=== PATIENT | male | born 1980 | race Caucasian/White ===

== ENCOUNTER 2020-09-06 12:49 | Inpatient (IN) | payer OTHER, SELFPAY ==
[~2020-09-06] VITALS: Ht 162.6 cm; Wt 113.0 kg
[2020-09-06 12:51] VITALS: Ht 162.6 cm; Wt 113.0 kg
[2020-09-06 15:25] LABS: BASOPHIL % 0.4 % (0.2-1.5); PLATELET COUNT 267 x10^3mcL (152-348); RED CELL DISTRIBUTION WIDTH 13.6 % (12.1-16.2)
[2020-09-06 16:35] LABS: CALCIUM 8.8 mg/dL (8.5-10.1); CARBON DIOXIDE 26.5 mmol/L (21-32); CHLORIDE SERUM 96 mmol/L (98-107); CREATININE SERUM 1.1 mg/dL (0.7-1.3); GFR1 > 60 mL/min; GLUCOSE SERUM 150 mg/dL (74-106); POTASSIUM SERUM 3.3 mmol/L (3.5-5.1); SODIUM SERUM 132 mmol/L (136-145)
[2020-09-06 16:46] LABS: ALKALINE PHOSPHATASE 52 U/L (46-116); ALT/SGPT 97 U/L (16-63); AST/SGOT 64 U/L (15-37); BILIRUBIN TOTAL 0.97 mg/dL (0.20-1.00); TOTAL PROTEIN, SERUM 7.7 g/dL (6.4-8.2)
[2020-09-06 16:47] LABS: ALBUMIN 2.9 g/dL (3.4-5.0); LACTIC DEHYDROGENASE (LDH) 613 U/L (100-190)
[2020-09-06 16:48] LABS: C REACTIVE PROTEIN 13.1 mg/dL (<=0.9)
[2020-09-06 17:30] LABS: UA SPECIFIC GRAVITY >=1.030 (1.005-1.035); microscopic required? YES; urine erythrocyte 3+ (NEGATIVE)
[2020-09-06 18:13] VITALS: BP 143/99
[2020-09-07 03:20] VITALS: BP 138/93
[2020-09-07 05:49] VITALS: BP 120/825
[2020-09-07 07:30] VITALS: BP 118/76
[2020-09-07 07:33] LABS: BASOPHIL % 0.2 % (0.2-1.5); PLATELET COUNT 295 x10^3mcL (152-348); RED CELL DISTRIBUTION WIDTH 13.4 % (12.1-16.2)
[2020-09-07 07:44] LABS: ALKALINE PHOSPHATASE 50 U/L (46-116); ALT/SGPT 91 U/L (16-63); AST/SGOT 51 U/L (15-37); BILIRUBIN TOTAL 0.69 mg/dL (0.20-1.00); CALCIUM 9.2 mg/dL (8.5-10.1); CARBON DIOXIDE 31.6 mmol/L (21-32); CHLORIDE SERUM 98 mmol/L (98-107); GFR1 > 60 mL/min; GLUCOSE SERUM 169 mg/dL (74-106); POTASSIUM SERUM 4.1 mmol/L (3.5-5.1); SODIUM SERUM 139 mmol/L (136-145); TOTAL PROTEIN, SERUM 7.3 g/dL (6.4-8.2)
[2020-09-07 07:46] LABS: ALBUMIN 2.6 g/dL (3.4-5.0)
[2020-09-07 12:46] VITALS: BP 136/87
[2020-09-07 18:05] VITALS: BP 119/71
[2020-09-07 21:48] VITALS: BP 131/71
[2020-09-08 05:48] VITALS: BP 121/76
[2020-09-08 07:32] LABS: BASOPHIL % 0.5 % (0.2-1.5); PLATELET COUNT 322 x10^3mcL (152-348); RED CELL DISTRIBUTION WIDTH 13.5 % (12.1-16.2)
[2020-09-08 08:01] LABS: ALKALINE PHOSPHATASE 48 U/L (46-116); ALT/SGPT 67 U/L (16-63); AST/SGOT 46 U/L (15-37); BILIRUBIN TOTAL 0.59 mg/dL (0.20-1.00); CALCIUM 8.5 mg/dL (8.5-10.1); CARBON DIOXIDE 30.9 mmol/L (21-32); CHLORIDE SERUM 99 mmol/L (98-107); CREATININE SERUM 0.9 mg/dL (0.7-1.3); GFR1 > 60 mL/min; GLUCOSE SERUM 119 mg/dL (74-106); POTASSIUM SERUM 3.3 mmol/L (3.5-5.1); SODIUM SERUM 137 mmol/L (136-145); TOTAL PROTEIN, SERUM 6.5 g/dL (6.4-8.2)
[2020-09-08 08:02] LABS: ALBUMIN 2.3 g/dL (3.4-5.0)
[2020-09-08 08:14] LABS: BILIRUBIN DIRECT 0.15 mg/dL (0.0-0.2); BILIRUBIN TOTAL 0.6 mg/dL (0.20-1.00); TOTAL PROTEIN, SERUM 6.5 g/dL (6.4-8.2)
[2020-09-08 08:17] LABS: ALBUMIN 2.4 g/dL (3.4-5.0)
[2020-09-08 09:08] VITALS: BP 116/71
[2020-09-08 12:17] VITALS: BP 131/88
[2020-09-08 16:35] VITALS: BP 145/82
[2020-09-08 21:26] VITALS: BP 122/80
[2020-09-09 05:38] VITALS: BP 127/74
[2020-09-09 07:43] LABS: BASOPHIL % 0.4 % (0.2-1.5); PLATELET COUNT 349 x10^3mcL (152-348); RED CELL DISTRIBUTION WIDTH 13.4 % (12.1-16.2)
[2020-09-09 08:08] LABS: ALKALINE PHOSPHATASE 46 U/L (46-116); ALT/SGPT 64 U/L (16-63); AST/SGOT 37 U/L (15-37); BILIRUBIN TOTAL 0.54 mg/dL (0.20-1.00); CALCIUM 8.7 mg/dL (8.5-10.1); CARBON DIOXIDE 30.7 mmol/L (21-32); CHLORIDE SERUM 101 mmol/L (98-107); CREATININE SERUM 0.8 mg/dL (0.7-1.3); GFR1 > 60 mL/min; GLUCOSE SERUM 126 mg/dL (74-106); POTASSIUM SERUM 3.5 mmol/L (3.5-5.1); SODIUM SERUM 139 mmol/L (136-145); TOTAL PROTEIN, SERUM 6.5 g/dL (6.4-8.2)
[2020-09-09 08:10] LABS: ALBUMIN 2.3 g/dL (3.4-5.0)
[2020-09-09 08:39] LABS: ALBUMIN 2.3 g/dL (3.4-5.0); BILIRUBIN DIRECT 0.15 mg/dL (0.0-0.2); BILIRUBIN TOTAL 0.53 mg/dL (0.20-1.00); TOTAL PROTEIN, SERUM 6.5 g/dL (6.4-8.2)
[2020-09-09 09:54] VITALS: BP 127/69
[2020-09-09 12:55] VITALS: BP 135/95
[2020-09-09 17:03] VITALS: BP 134/89
[2020-09-10 06:38] VITALS: BP 137/83
[2020-09-10 09:33] VITALS: BP 120/72
[2020-09-10 13:40] VITALS: BP 120/77
[2020-09-10 14:02] LABS: BASOPHIL % 0.8 % (0.2-1.5); RED CELL DISTRIBUTION WIDTH 13.6 % (12.1-16.2)
[2020-09-10 14:25] LABS: PLATELET COUNT 452 x10^3mcL (152-348)
[2020-09-10 14:59] LABS: ALKALINE PHOSPHATASE 57 U/L (46-116); ALT/SGPT 111 U/L (16-63); AST/SGOT 69 U/L (15-37); BILIRUBIN TOTAL 0.55 mg/dL (0.20-1.00); CALCIUM 9.1 mg/dL (8.5-10.1); CARBON DIOXIDE 31.8 mmol/L (21-32); CHLORIDE SERUM 102 mmol/L (98-107); CREATININE SERUM 0.9 mg/dL (0.7-1.3); GFR1 > 60 mL/min; GLUCOSE SERUM 123 mg/dL (74-106); POTASSIUM SERUM 3.7 mmol/L (3.5-5.1); SODIUM SERUM 140 mmol/L (136-145); TOTAL PROTEIN, SERUM 7.1 g/dL (6.4-8.2)
[2020-09-10 15:01] LABS: ALBUMIN 2.6 g/dL (3.4-5.0)
[2020-09-10 17:28] VITALS: BP 122/85
[2020-09-10 21:00] VITALS: BP 112/70
[2020-09-11 05:30] VITALS: BP 113/79
[2020-09-11] MEDS ORDERED: DECADRON6 MG PO ×2 (10:37→17:59)
[2020-09-11 14:01] LABS: RED CELL DISTRIBUTION WIDTH 13.6 % (12.1-16.2)
[2020-09-11 14:20] LABS: ALKALINE PHOSPHATASE 60 U/L (46-116); ALT/SGPT 174 U/L (16-63); AST/SGOT 105 U/L (15-37); BILIRUBIN TOTAL 0.63 mg/dL (0.20-1.00); CALCIUM 8.8 mg/dL (8.5-10.1); CARBON DIOXIDE 30.1 mmol/L (21-32); CHLORIDE SERUM 102 mmol/L (98-107); GFR1 > 60 mL/min; GLUCOSE SERUM 187 mg/dL (74-106); POTASSIUM SERUM 3.5 mmol/L (3.5-5.1); SODIUM SERUM 139 mmol/L (136-145); TOTAL PROTEIN, SERUM 6.9 g/dL (6.4-8.2)
[2020-09-11 14:21] LABS: ALBUMIN 2.7 g/dL (3.4-5.0)
[2020-09-11 15:00] LABS: PLATELET COUNT 477 x10^3mcL (152-348)
[2020-09-11 15:10] LABS: BILIRUBIN DIRECT 0.17 mg/dL (0.0-0.2); BILIRUBIN TOTAL 0.59 mg/dL (0.20-1.00); TOTAL PROTEIN, SERUM 6.9 g/dL (6.4-8.2)
[2020-09-11 15:11] LABS: ALBUMIN 2.7 g/dL (3.4-5.0)
[2020-09-11 15:35] VITALS: BP 113/79
[2020-09-11 23:13] LABS: BAND NEUTROPHIL 5 % (0-10); METAMYELOCTE 3 % (0-2); MONOCYTE 8 % (0-7); MYELOCYTE 1 % (0-2); SEGMENTED NEUTROPHILS 59 % (37-75)
[2020-09-11 23:14] LABS: PLATELET MORPHOLOGY PLATELETS NORMAL; rbc morphology (normal/abnorm) NORMAL (NORMAL)
== END 2020-09-11 03:00 | disposition home or self-care (01) | DRG 177 ==
LOC: ED 12:49 → DU 17:35
PROVIDERS: Emergency Medicine; ADMIT Internal Medicine; ATTEND Internal Medicine
PROC: XW033E5 Introduction of Remdesivir Anti-infective into Peripheral Vein, Percutaneous Approach, New Technology Group 5 (ICD-10-PCS; principal; 2020-09-09)
DX: U07.1 COVID-19 (principal); J96.01 Acute respiratory failure with hypoxia; J12.82 Pneumonia due to coronavirus disease 2019; D68.59 Other primary thrombophilia; Z83.3 Family history of diabetes mellitus; Z82.49 Family history of ischemic heart disease and other diseases of the circulatory system; F17.200 Nicotine dependence, unspecified, uncomplicated; E66.01 Morbid (severe) obesity due to excess calories; Z71.3 Dietary counseling and surveillance; Z68.39 Body mass index [BMI] 39.0-39.9, adult; I10 Essential (primary) hypertension; E11.9 Type 2 diabetes mellitus without complications
CPT/HCPCS: 36600; 83880; 85378; 87804; G0378; J0456; J0696; J1100; J1650; J7030; J7040; J7050; J7060; U0003